=== PATIENT | male | born 1960 | race Caucasian/White ===

== ENCOUNTER → 2017-10-11 11:33 | Outpatient (CLI) | payer MEDICAID, SELFPAY ==
[2017-10-11 12:18] LABS: Amphetamine Urine VISTA NEGATIVE (<1000 ng/mL); Barbiturate Urine VISTA NEGATIVE (< 200 ng/mL); Benzodiazepine Urine VISTA NEGATIVE (< 200 ng/mL); Cocaine Urine VISTA NEGATIVE (< 300 ng/mL); Ecstacy Urine VISTA NEGATIVE (< 500 ng/mL); Methadone Urine VISTA NEGATIVE (< 300 ng/mL); PCP Urine VISTA NEGATIVE (< 25 ng/mL); THC Urine VISTA NEGATIVE (< 50 ng/mL); Vista UDS pH Range 7
== END ==
PROVIDERS: Family Provider Family Medicine; PCP Family Medicine; Visit Provider Anesthesiology Pain Medicine
DX: F11.20 Opioid dependence, uncomplicated (principal)
CPT/HCPCS: 80307

== ENCOUNTER → 2018-07-18 13:00 | Outpatient (CLI) | payer MEDICAID, SELFPAY ==
[2018-07-18 15:04] LABS: Amphetamine Urine VISTA NEGATIVE (<1000 ng/mL); Barbiturate Urine VISTA NEGATIVE (< 200 ng/mL); Benzodiazepine Urine VISTA NEGATIVE (< 200 ng/mL); Cocaine Urine VISTA NEGATIVE (< 300 ng/mL); Ecstacy Urine VISTA NEGATIVE (< 500 ng/mL); Methadone Urine VISTA NEGATIVE (< 300 ng/mL); PCP Urine VISTA NEGATIVE (< 25 ng/mL); THC Urine VISTA NEGATIVE (< 50 ng/mL); Vista UDS pH Range 6
== END ==
PROVIDERS: Family Provider Family Medicine; PCP Family Medicine; Referring Provider Anesthesiology Pain Medicine; Visit Provider Anesthesiology Pain Medicine
DX: F11.20 Opioid dependence, uncomplicated (principal)
CPT/HCPCS: 80307

== ENCOUNTER → 2019-01-09 | Outpatient (CLI) | payer MEDICAID, SELFPAY ==
[2018-11-12 11:10] VITALS: BMI 27.8
[2019-01-09 17:42] LABS: Amphetamine Urine VISTA NEGATIVE (<1000 ng/mL); Barbiturate Urine VISTA NEGATIVE (< 200 ng/mL); Benzodiazepine Urine VISTA NEGATIVE (< 200 ng/mL); Cocaine Urine VISTA NEGATIVE (< 300 ng/mL); Ecstacy Urine VISTA NEGATIVE (< 500 ng/mL); Methadone Urine VISTA NEGATIVE (< 300 ng/mL); PCP Urine VISTA NEGATIVE (< 25 ng/mL); THC Urine VISTA NEGATIVE (< 50 ng/mL); Vista UDS pH Range 6
== END | disposition home or self-care (01) ==
PROVIDERS: Family Provider Family Medicine; PCP Family Medicine; Referring Provider Anesthesiology Pain Medicine; Visit Provider Anesthesiology Pain Medicine
DX: F11.20 Opioid dependence, uncomplicated (principal)
CPT/HCPCS: 80307

== ENCOUNTER → 2019-10-07 13:57 | Outpatient (CLI) | payer MEDICAID, SELFPAY ==
[2019-05-20 11:15] VITALS: BMI 28.0
[2019-10-07 17:03] LABS: Amphetamine Urine VISTA NEGATIVE (<1000 ng/mL); Barbiturate Urine VISTA NEGATIVE (< 200 ng/mL); Benzodiazepine Urine VISTA NEGATIVE (< 200 ng/mL); Cocaine Urine VISTA NEGATIVE (< 300 ng/mL); Ecstacy Urine VISTA NEGATIVE (< 500 ng/mL); Methadone Urine VISTA NEGATIVE (< 300 ng/mL); PCP Urine VISTA NEGATIVE (< 25 ng/mL); THC Urine VISTA NEGATIVE (< 50 ng/mL); Vista UDS pH Range 5
== END ==
PROVIDERS: PCP Family Medicine; Referring Provider Anesthesiology Pain Medicine; Visit Provider Anesthesiology Pain Medicine
DX: F11.20 Opioid dependence, uncomplicated (principal)
CPT/HCPCS: 80307

== ENCOUNTER → 2020-03-23 10:55 | Outpatient (CLI) | payer MEDICAID, SELFPAY ==
[2019-05-20 11:15] VITALS: BMI 28.0
[2020-03-23 11:51] LABS: Amphetamine Urine VISTA NEGATIVE (<1000 ng/mL); Barbiturate Urine VISTA NEGATIVE (< 200 ng/mL); Benzodiazepine Urine VISTA NEGATIVE (< 200 ng/mL); Cocaine Urine VISTA NEGATIVE (< 300 ng/mL); Ecstacy Urine VISTA NEGATIVE (< 500 ng/mL); Methadone Urine VISTA NEGATIVE (< 300 ng/mL); PCP Urine VISTA NEGATIVE (< 25 ng/mL); THC Urine VISTA NEGATIVE (< 50 ng/mL); Vista UDS pH Range 5
== END ==
PROVIDERS: PCP Family Medicine; Referring Provider Anesthesiology Pain Medicine; Visit Provider Anesthesiology Pain Medicine
DX: F11.20 Opioid dependence, uncomplicated (principal)
CPT/HCPCS: 80307

== ENCOUNTER → 2020-11-11 14:42 | Outpatient (CLI) | payer MEDICAID, SELFPAY ==
[2020-06-10 10:44] VITALS: BMI 29.1
[2020-11-11 16:17] LABS: Amphetamine Urine VISTA NEGATIVE (<1000 ng/mL); Barbiturate Urine VISTA NEGATIVE (< 200 ng/mL); Benzodiazepine Urine VISTA NEGATIVE (< 200 ng/mL); Cocaine Urine VISTA NEGATIVE (< 300 ng/mL); Ecstacy Urine VISTA NEGATIVE (< 500 ng/mL); Methadone Urine VISTA NEGATIVE (< 300 ng/mL); PCP Urine VISTA NEGATIVE (< 25 ng/mL); THC Urine VISTA NEGATIVE (< 50 ng/mL); Vista UDS pH Range 6
== END ==
PROVIDERS: PCP Family Medicine; Referring Provider Anesthesiology Pain Medicine; Visit Provider Anesthesiology Pain Medicine
DX: F11.20 Opioid dependence, uncomplicated (principal)
CPT/HCPCS: 80307

== ENCOUNTER → 2021-05-26 14:12 | Outpatient (CLI) | payer MEDICAID, SELFPAY ==
[2021-05-26 15:02] LABS: Amphetamine Urine VISTA NEGATIVE (<1000 ng/mL); Barbiturate Urine VISTA NEGATIVE (< 200 ng/mL); Benzodiazepine Urine VISTA NEGATIVE (< 200 ng/mL); Cocaine Urine VISTA NEGATIVE (< 300 ng/mL); Ecstacy Urine VISTA NEGATIVE (< 500 ng/mL); Methadone Urine VISTA NEGATIVE (< 300 ng/mL); PCP Urine VISTA NEGATIVE (< 25 ng/mL); THC Urine VISTA NEGATIVE (< 50 ng/mL); Vista UDS pH Range 6
== END ==
PROVIDERS: PCP Family Medicine; Referring Provider Anesthesiology Pain Medicine; Visit Provider Anesthesiology Pain Medicine
DX: F11.20 Opioid dependence, uncomplicated (principal)
CPT/HCPCS: 80307

== ENCOUNTER 2021-10-13 15:37 | Outpatient (CLI) | payer MEDICAID, SELFPAY ==
[2021-10-13 16:44] LABS: Amphetamine Urine VISTA NEGATIVE (<1000 ng/mL); Barbiturate Urine VISTA NEGATIVE (< 200 ng/mL); Benzodiazepine Urine VISTA NEGATIVE (< 200 ng/mL); Cocaine Urine VISTA NEGATIVE (< 300 ng/mL); Ecstacy Urine VISTA NEGATIVE (< 500 ng/mL); Methadone Urine VISTA NEGATIVE (< 300 ng/mL); PCP Urine VISTA NEGATIVE (< 25 ng/mL); THC Urine VISTA NEGATIVE (< 50 ng/mL); Vista UDS pH Range 6
== END 2021-10-13 23:59 | disposition home or self-care (01) ==
LOC: LAB 15:38
PROVIDERS: PCP Family Medicine; Visit Provider Anesthesiology Pain Medicine
DX: F11.20 Opioid dependence, uncomplicated (principal)
CPT/HCPCS: 80307

== ENCOUNTER → 2022-06-22 | Outpatient (CLI) | payer MEDICAID, SELFPAY ==
[2022-06-22 13:52] LABS: Amphetamine Urine VISTA NEGATIVE (<1000 ng/mL); Barbiturate Urine VISTA NEGATIVE (< 200 ng/mL); Benzodiazepine Urine VISTA NEGATIVE (< 200 ng/mL); Cocaine Urine VISTA NEGATIVE (< 300 ng/mL); Ecstacy Urine VISTA NEGATIVE (< 500 ng/mL); Methadone Urine VISTA NEGATIVE (< 300 ng/mL); PCP Urine VISTA NEGATIVE (< 25 ng/mL); THC Urine VISTA NEGATIVE (< 50 ng/mL); Vista UDS pH Range 6
== END | disposition home or self-care (01) ==
LOC: LAB 13:08
PROVIDERS: PCP Family Medicine; Referring Provider Anesthesiology Pain Medicine; Visit Provider Anesthesiology Pain Medicine
DX: F11.20 Opioid dependence, uncomplicated (principal)
CPT/HCPCS: 80307

== ENCOUNTER → 2023-01-11 | Outpatient (CLI) | payer MEDICAID, SELFPAY ==
[2023-01-11 14:40] LABS: Amphetamine Urine VISTA NEGATIVE (<1000 ng/mL); Barbiturate Urine VISTA NEGATIVE (< 200 ng/mL); Benzodiazepine Urine VISTA NEGATIVE (< 200 ng/mL); Cocaine Urine VISTA NEGATIVE (< 300 ng/mL); Ecstacy Urine VISTA NEGATIVE (< 500 ng/mL); Methadone Urine VISTA NEGATIVE (< 300 ng/mL); PCP Urine VISTA NEGATIVE (< 25 ng/mL); THC Urine VISTA NEGATIVE (< 50 ng/mL); Vista UDS pH Range 6
== END | disposition home or self-care (01) ==
LOC: LAB 13:44
PROVIDERS: PCP Family Medicine; Referring Provider Anesthesiology Pain Medicine; Visit Provider Anesthesiology Pain Medicine
DX: F11.20 Opioid dependence, uncomplicated (principal)
CPT/HCPCS: 80307

== ENCOUNTER 2023-08-03 13:43 | Outpatient (RCR) | payer MEDICAID, SELFPAY | END 2023-08-03 23:59 | LOC: NS 13:43 | PROVIDERS: PCP Internal Medicine; Visit Provider Internal Medicine Hematology & Oncology | DX: Z71.3 Dietary counseling and surveillance (principal); C09.9 Malignant neoplasm of tonsil, unspecified; C96.9 Malignant neoplasm of lymphoid, hematopoietic and related tissue, unspecified ==

== ENCOUNTER 2023-08-15 08:47 | Day surgery (SDC) | payer MEDICAID, SELFPAY ==
[2023-08-15] MEDS: Lactated Ringers 1,000 ML 15 ML IV (09:40)
--- NOTE | 2023-08-15 09:41 | PCM.HP.BLA ---
History and Physical Date of Admission: 08/15/23 Intake Vital Signs 07/24/2309:50 07/26/2309:41 Height 5 ft 9 in 5 ft 9 in Weight: 179 lb BMI 26.4 BP 133/76 H Blood Pressure Location Rt brachial Position Sitting Respiration 16 Intake Visit Reasons: PORT/PEG TUBE PLACEMENT Chief Complaint: Left neck mass, tonsil cancer Allergies bee venom protein (honey bee) Allergy (Verified 07/24/23 09:44) anaphylaxis COUNTS INCLUDE 234 BEDS AT THE [facility] Medical History (Updated 07/26/23 @ 09:[address] Pedrito Mathew MD) Anterolisthesis Atherosclerotic heart disease of [place] coronary artery without angina pectoris CVA (cerebral vascular accident) Essential hypertension Femoral bruit HLD (hyperlipidemia) HLD (hyperlipidemia) Hypertension Nonsustained ventricular tachycardia NSTEMI (non-ST elevated myocardial infarction) Old myocardial infarction Presence of stent in coronary artery (~07/14/16) Regional lymph node metastasis present Surgical History (Updated 07/26/23 @ 09:41 by Terri Pascual) History of bilateral knee replacement Presence of coronary angioplasty implant and graft S/P PTCA (percutaneous transluminal coronary angioplasty) S/P tooth extraction Family History Father CAD (coronary artery disease)Mother Hypertension Social History Smoking Status: Current every day smoker tobacco type: cigarettes second hand exposure: Yes quit status: considering quitting alcohol intake: current alcohol intake frequency: holidays/special occasions only Alcohol type: beer Previous attempts at quittin substance use type: does not use caffeine: Yes Type: carbonated beverages, coffee and tea what type of physical activity do you participate in: none seatbelt use: always do you feel safe at home: Yes HPI HPI HPI: Patient is a 63-year-old male here with tonsillar cancer for port placement and PEG placement. Patient recently had teeth pulled and is requested that we wait 2 weeks to perform the procedure. ROS General General: Yes weight change and fatigue; No appetite, colon cancer, breast cancer or weakness HEENT HEENT: Yes swollen glands; No difficulty swallowing, eye injury, eye surgery or hoarseness Endo Endocrine: No thyroid disease, diabetes mellitus, thyroid cancer, Hair loss, heat intolerance or cold intolerance Skin Skin: No rash or changing moles Breast Breast: No left breast lump, right breast lump, nipple discharge, breast pain, abnormal mammogram, abnormal US or breast enlargement Musc Musculoskeletal: Yes back problems; No arthritis, rheumatoid arthritis, gout or joint pain Cardio Cardiovascular: Yes heart disease, high blood pressure, heart attack and heart stent; No murmur, pacemaker, atrial fibrillation, palpitations, shortness of breat with exertion or chest pain Psych Psychiatric: No depression, anxiety or hearing voices Resp Respiratory: No shortness of breath, No sleep apnea, No cough, No COPD, No asthma, No emphysema and No wheezing Gastro Gastrointestinal: No abdominal pain, No nausea or vomiting, No diarrhea, No constipation, No blood in stool, No acid reflux, No hemorrhoids, No ulcers, No gallbladder problem and No black,tarry stools Rene Hematologic: Yes blood thinners, No blood disorders, No bleeding, No anemia and No blood clots Neuro Neurologic: No system reviewed and no additional complaints, except as documented, No as per HPI, No abnormal gait, No abnormal hearing, No abnormal movements, No abnormal speech, No behavioral changes, No burning sensations, No confusion, No convulsions, No disequilibrium, No dizziness, No localized weakness, No frequent falls, No headache(s), No lack of coordination, No loss of vision, No memory loss, Yes numbness, No other visual disturbances, No radicular pain, No restless legs, No sensory deficit, No syncope, Yes tingling, No tremor(s), No weakness and No other Exam Const General: cooperative Orientation: alert and oriented x3 HENMT Head: normal to inspection Neck Neck: normal visual inspection and full ROM Chest Chest palpation & inspection: normal inspection of the chest Resp Effort & Inspection: normal respiratory effort Auscultation: clear to auscultation bilaterally Cardio Rate: regular rate Rhythm: regular rhythm GI Inspection: non-distended Palpation: soft and nontender Skin General: no rashes or lesions noted Neuro General: patient alert and patient oriented x3 Extrem General: full ROM Psych Appearance: grossly normal Mental Status: mental status grossly normal Assessment and Plan Assessment and Plan (1) Regional lymph node metastasis present: Status: Acute (2) Squamous cell carcinoma of left tonsil: Status: Acute (3) Encounter for insertion of venous access port: Status: Acute Plan I discussed port and PEG tube placement. I discussed chest port placement in detail including the risks of bleeding and infection and injury to other organs or pneumothorax. I also discussed PEG tube placement with EGD. I discussed the risks of displacement as well as colonic injury or injury to any organs in between the stomach and the abdominal wall. I discussed the risks of this as well and the risk of endoscopy. Patient understands all the risks and is willing to proceed. The patient will stop his Plavix for 5 days but he may continue his aspirin. Pedrito Mathew MD Pager: [facility] [address] [place] [address], [address] [place] [address] Office: I have examined the patient and the H&P has been reviewed. There are no clinical changes since date of exam.
[2023-08-15 09:42] VITALS: BP 117/67; PULSE 51; RESP 18; TEMP 36.6; O2SAT 100; BMI 25.8
[2023-08-15] MEDS: Cefotetan 2 GM in 0.9% NS 100 ML IV (10:22)
[2023-08-15] MEDS: Lidocaine 1%/Epi 1:200 (30ml) 30 ML AMPUL (10:38)
[2023-08-15] MEDS: Bupivacaine Mpf 0.5% 30 ML VIAL (10:39)
--- NOTE | 2023-08-15 11:12 | OP.PCM_ITS ---
Report of Operation Date of Procedure: 08/15/23 Pre-Operative Diagnosis: Tonsillar cancer and need for PEG tube and port for ch emotherapy and feeding Post-Operative Diagnosis: Same Surgery/Procedure Performed:: 1. Ultrasound and fluoroscopy guided right chest port placement utilizing right IJ 2. EGD with PEG tube placement Type of Anesthesia: Local MAC Estimated Blood Loss (mL): 10 Description of Procedure: After obtaining informed consent patient was brought back to the operating room MAC anesthesia was induced and the right chest and neck were prepped in normal sterile fashion. Ultrasound was used to evaluate both IJs and the right IJ was selected. Next, using a needle, the right IJ was accessed and a guidewire was passed on into the superior vena cava under fluoroscopy guidance. A small incision was made over the puncture site and the dilator introducer was placed over the guidewire. Next this was capped and the pocket was made for the port. 1% lidocaine with epinephrine was injected in the proposed port site. An incision was made with scalpel. Electrocautery was used to make a pocket under the skin and subcutaneous tissue. Hemostasis was obtained. Next, the catheter was tunneled up to the neck incision site and placed through the introducer. The peel-away introducer was removed and the position of the catheter was confirmed on fluoroscopy. Next, the catheter was trimmed and attached to the port with the locking device. Interrupted 2-0 Vicryl sutures were used to anchor the port to the chest wall and then the port was placed inside the pocket. The pocket was then flushed with saline and the port irrigated with saline. There was good blood return and the port flushed easily. Next, heparin was injected into the port. The skin was closed with subcutaneous interrupted 3-0 Vicryl sutures. A single 3-0 Vicryl sutures placed under the skin at the neck incision site. Steri-Strips were placed as well as op sites. Next the abdomen was prepped and draped. Well-lubricated EGD scope was placed through the mouth and down through the esophagus into the stomach. Stomach was insufflated. Using palpation and transillumination an area of the stomach was selected. Next the area overlying this was prepped and then injected with local anesthetic. A small skin incision was made with a scalpel. Under direct visualization the test needle was placed through the abdominal wall and into the stomach. The guidewire was placed through this and then the snare was used to grasp the guidewire and the scope was removed bringing the guidewire with it. The PEG tube was attached to the guidewire and then retracted back into the stomach so that the PEG tube was pulled through the incision. The scope was reinserted into the stomach and it was inspected. The bumper was in good position. It was loosely touching the stomach wall and abdominal wall. There was minimal bleeding. The stomach was suctioned and the scope was removed. The bolster was placed over the PEG tube as well as the clamp and then the connecting device. The bolster was placed at 3 cm. Dressings were applied as well as antiseptic ointment. The tube was taped to the abdominal wall. Patient tolerated procedure well, was taken to PACU in stable condition. Chest x-ray will be obtained. Grafts/Implants Used: 8 [place]amese PowerPort, 20 [place]amese safety pull PEG tube Admit VTE Documentation VTE Mechan Device Prophylaxis: SCD's
[2023-08-15 11:15] VITALS: BP 114/76; BP 117/67; PULSE 48; RESP 16; TEMP 36.8; O2SAT 98
--- NOTE | 2023-08-15 11:16 | DCINST_ITS ---
Discharge Instructions Procedure Port-A-Cath Diet Discharge Diet: Light diet - advance as tolerated (Pain medication may cause nausea. You should typically eat light foods as you take your pain medication.) Activity Discharge Activity: Return to Normal Activity and May Shower (with your bandage in place in 1-2 days after surgery. DO NOT SHOWER WHEN YOUR PORT IS ACCESSED.) Lifting Restrictions: 20 lbs for 2 days Dressing / Incision Call your doctor if your incision/area has: Continuous Slow Oozing, Sudden Increased Bleeding, Increased Pain/ Swelling, Increased Redness and Foul Smelling Discharge Call your doctor if you observe: Fever of 101 or Higher Remove Dressing in: 2 days Cleanse incision/area with: Soap & Water Additional Dressing/Incision Instructions:: change PEG dressings as needed. flush per oncologists instruction. Follow Up Care Please Follow Up With: Pedrito Mathew MD When: as needed [phone] Test Results: Test results from this visit will be discussed in further detail at your follow- up appointment, if applicable. Discharge Plan Admission Attending Provider: Pedrito Mathew Primary Care Provider: Jennifer Ortega Instructions Additional Instructions / Restrictions: Alternate ibuprofen and Tylenol for pain, resume Plavix on Discharge Orders/Prescriptions Prescriptions: No Action hydrocodone-acetaminophen 7.5-325 mg tablet 1 tab PO TID Lyrica 100 mg capsule 100 mg PO TID albuterol sulfate [Ventolin HFA] 90 mcg/actuation HFA aerosol inhaler 2 puff INHALATION Q6H PRN (Reason: shortness of breath or wheezing) meclizine 25 mg tablet 25 mg PO TID PRN (Reason: Vertigo) Qty: 270 3RF nicotine 14 mg/24 hr patch 24 hour 1 patch transdermal Q24H Qty: 28 1RF lidocaine-prilocaine 2.5-2.5 % cream 1 applic topical ONCE PRN (Reason: port access) 30 Days Qty: 30 2RF dexamethasone 4 mg tablet 8 mg PO .COMPLEX Qty: 42 0RF Rx Instructions: Take 8 mg orally on days 2, 3 and 4 after chemotherapy ondansetron 8 mg tablet,disintegrating 8 mg PO Q8H PRN (Reason: nausea and vomiting) Qty: 30 2RF aspirin 81 MG tablet,delayed release (DR/EC) 81 mg PO DAILY Patient Comments: heart health amlodipine 10 mg tablet 10 mg PO DAILY Qty: 90 3RF Patient Comments: helps control BP lisinopril 40 mg tablet 40 mg PO QDAY Qty: 90 3RF clopidogrel 75 mg tablet 75 mg PO DAILY Qty: 90 3RF Patient Comments: helps prevents clots from forming atorvastatin 40 mg tablet 40 mg PO QDAY Qty: 90 3RF metoprolol tartrate 25 mg tablet 12.5 mg PO BID Qty: 90 3RF Referrals / Follow Up: Jennifer Ortega, [Primary Care Provider] - Disposition Disposition (needs filled in before D/C Order can be placed): Home, Self Care
[2023-08-15 11:20] VITALS: BP 117/67; BP 127/69; PULSE 57; RESP 16; O2SAT 99
[2023-08-15 11:24] VITALS: BP 117/67; BP 137/73; PULSE 49; RESP 16; TEMP 36.9; O2SAT 100
--- NOTE | 2023-08-15 11:25 | RAD_ITS ---
STUDY: X-RAY CHEST REASON FOR EXAM: Male, 63 years old. Line placement -- in pacu TECHNIQUE: Single AP portable view of the chest. COMPARISON: Comparison is made with prior study June 13, 2016. FINDINGS: A right-sided Port-A-Cath is seen with the tip at the junction of the superior vena cava and right atrium. The lungs are clear and expanded. Stable granuloma in the right midlung. There is no demonstrated pleural abnormality. Normal size heart. Normal mediastinum and derrick. Normal visualized pulmonary arteries. There is atherosclerotic calcification of the aortic arch with tortuosity. There are degenerative changes of the visualized thoracic spine. Normal visualized ribs, clavicles, and shoulders. There is no demonstrated abnormality of the visualized soft tissue structures of the upper abdomen. RAD/CXR for Line Placement IMPRESSION: The tip of the right-sided sofía catheter is at the junction of the superior vena cava and right atrium. Electronically Signed: Julian Huber MD at 12:36 EST ,
[2023-08-15] MEDS: oxyCODONE 5 MG Tablet PO (12:24)
[2023-08-15] MEDS: Acetaminophen 325 MG Tablet 650 MG PO (12:24)
[2023-08-15 12:36] VITALS: BP 117/67; BP 130/72; PULSE 63; RESP 20; TEMP 36.4; O2SAT 99
[2023-08-15 13:09] VITALS: BP 117/67
== END 2023-08-15 13:14 | disposition home or self-care (01) ==
LOC: EN 08:48 → AC 08:50
PROVIDERS: PCP Internal Medicine; Referring Provider Internal Medicine; Visit Provider Surgery
PROC: 0DJ08ZZ Inspection of Upper Intestinal Tract, Via Natural or Artificial Opening Endoscopic (ICD-10-PCS; CPT 43235; principal; 2023-08-15 10:15)
DX: Z45.2 Encounter for adjustment and management of vascular access device (principal); C77.9 Secondary and unspecified malignant neoplasm of lymph node, unspecified; C09.9 Malignant neoplasm of tonsil, unspecified; Z46.59 Encounter for fitting and adjustment of other gastrointestinal appliance and device; I10 Essential (primary) hypertension; E78.00 Pure hypercholesterolemia, unspecified; I25.10 Atherosclerotic heart disease of native coronary artery without angina pectoris; F17.210 Nicotine dependence, cigarettes, uncomplicated; Z79.01 Long term (current) use of anticoagulants; Z79.02 Long term (current) use of antithrombotics/antiplatelets; Z79.82 Long term (current) use of aspirin; Z79.899 Other long term (current) drug therapy
CPT/HCPCS: 36561; 43246; 00532; 71045; 77001; J7120; C1788; J2405

== ENCOUNTER → 2023-08-24 | Outpatient (CLI) | payer MEDICAID, SELFPAY ==
--- NOTE | 2023-08-24 14:33 | ST.MBS ---
Modified Barium Swallow Patient Information Study Date: 08/24/23 Study Time: 13:00 Direct Billable Minutes: 83 Total Minutes procedure & reportin Diagnosis: Squamous cell carcinoma of left tonsil C09.9 Referring Physician: Keven Gastelum Reason for Referral: Objectively assess swallow function, assess risk for aspiration, and determine recommendations for least restrictive diet textures and compensatory strategies to improve safety of swallow. Medical History: He is a 63 year old male diagnosed with clinical stage I (cT2 cN1 M0) p16 positive SCC of the left tonsil status post evaluation and biopsy of the primary disease (06/21/2023), CT neck/chest with contrast (06/29/2023), and evaluation by ENT (07/17/2023). Started chemo and radiation 08/21/23. His cancer has spread to his L soft palate and the back of his tongue per significant other, Lawanda. He began chemoradiation 08/21/2023 and has PEG tube in place, which was adjusted 08/21/2023 due to pain/discomfort. PEG tube has been placed. He eats regular textures / thin liquids without difficulty despite inability to wear his dentures (irritating). After BSE with [facility] 08/22/2023, he was recommended for soft and bite size textures / thin liquids with plans for MBSS to further assess risk for aspiration. Patient experienced a CVA (May 2016) with residual L sided numbness (~3/4 numb per patient) and weakness. Hx of ST, OT, PT - but patient unable to give details. Denies swallowing difficulty besides drooling after the stroke. Current Diet Ordered: Soft and bite size textures / Thin liquids Dentition: Edentulous Mental Status: WNL (Able to follow commands for the evaluation.) Respiratory Status: Oxygenating on Room Air Penetration-Aspiration Scale Penetration-Aspiration Scale: OBJECTIVE ASSESSMENT OF SWALLOW FUNCTION (QUANTITATIVE ? PER TRIAL): PENETRATION / ASPIRATION SCALE ([place]): 1 = does not enter airway 2 = enters airway/above vocal folds/ejected 3 = enters airway/above vocal folds/not ejected 4 = enters airway/contacts vocal folds/ejected 5 = enters airway/contacts vocal folds/not ejected 6 = enters airway/below vocal folds/ejected 7 = enters airway/below vocal folds/not ejected despite effort 8 = enters airway/below vocal folds/no effort VIDEOFLOROSCOPIC SCALE SCORE (HANCOCK): Grade I = aspiration of material that has penetrated into the laryngeal vestibule, intact cough reflex Grade II = aspiration < 10 % of the bolus, intact cough reflex Grade III = aspiration of < 10 % of the bolus, reduced cough reflex or aspiration of > 10 % of the bolus, intact cough reflex Grade IV = aspiration of > 10 % of the bolus, reduced cough reflex Penetration-Aspiration Scale Score Thin Liquid via teaspoon: Result: 2= enter airway/above vocal folds/ejected Thin Liquid via teaspoon Trial 2: Result: 1= does not enter airway Thin Liquid via large single sip: cup: Result: 2= enter airway/above vocal folds/ejected [place] Thick Liquid via large single sip: cup: Result: 1= does not enter airway Pudding via teaspoon: Result: 1= does not enter airway Comment: Esophageal screen - Complete clearance. / Cookie: Result: 1= does not enter airway Thin Liquid via sequential sips:straw: Result: 1= does not enter airway Oral Phase Labial Seal: Interlabial escape, no progression to anterior lip Tongue Control During Bolus Hold: Posterior escape of greater than half of bolus Bolus Preparation/Mastication: Slow prolonged chewing/mashing with complete recollection Bolus Transport/Lingual Motion: Delayed initiation of tongue motion Oral Residue: Residue collection on oral structures (sequential sips of thin) Pharyngeal Phase Initiation of Pharyngeal Swallow: Bolus head in pyriforms Soft Palate Elevation: Trace column of contrast/air between soft palate and pharyngeal wall Laryngeal Elevation: Comp. Superior move thyroid cart w/comp. apprx arytenoid cart-epig pet Anterior Hyoid Excursion: Partial anterior movement Epiglottic Movement: Complete inversion Laryngeal Vestibule Closure at Height of Swallow: Incomplete; narrow column of air/contrast in laryngeal vestibule Pharyngeal Stripping Wave: Present - diminished Pharyngoesophageal Segment Opening: Complete distension and complete duration; no obstruction of flow Tongue Base Retraction: Narrow column of contrast between tongue base & post. pharyngeal wall Pharyngeal Residue: Collection of residue within or on pharyngeal structures Esophageal Phase Esophageal Clearance: Complete clearance Diagnosis/Impression Diagnosis: Mild oropharyngeal phase dysphagia R13.12 Impression: The oral phase is primarily marked by... -Decreased bolus control with >1/2 of the bolus spilling posteriorly to the pyriforms prior to swallow onset observed with sequential sips of thin liquids. -Mildly delayed tongue motion for A-P transport. -Prolonged, but complete mastication of cookie. The pharyngeal phase is primarily marked by... -Mildly decreased anterior hyoid excursion; however, complete laryngeal elevation. Trace laryngeal penetration of full liquids via cup and tsp with full ejection. -Mildly-moderately decreased tongue base retraction and pharyngeal stripping wave with resulting mild-moderate pharyngeal residues. -Mildly delayed swallow onset. Recommendations Diet: Mechanical Soft Textures (Soft and bite size textures - IDDSI Level 6) and Thin Liquids Compensatory Strategies: Small Bites, Small Sips, Slow Rate, Alternate bites/solids and sips/liquids and Sitting upright Recommend Repeat Modified Barium Swallow: Yes (Repeat MBSS 3 months after completion of radiation to monitor swallow function as the patient is at risk for worsening dysphagia and aspiration risk s/p radiation treatment.) Need for Skilled Speech Therapy Services: Yes Comment: 1X every other week for dysphagia therapy. Train in use of aspiration precautions and oropharyngeal exercise program (Samantha Scales, CTAR, Effortful Swallow). Monitor jaw opening as patient is at risk for trismus during chemoradiation treatment. Status Active ST Patient: Active Contact Information [facility] Speech Therapy:: Jennifer Pederson M.A. [facility] Speech-Language Pathologist [facility] [address] [place] [address] [email or web address] [phone]
== END | disposition home or self-care (01) ==
LOC: RAD 12:25
PROVIDERS: PCP Internal Medicine; Referring Provider Student in an Organized Health Care Education/Training Program; Visit Provider Student in an Organized Health Care Education/Training Program
DX: C09.9 Malignant neoplasm of tonsil, unspecified (principal)
CPT/HCPCS: 74230; 92611

== ENCOUNTER 2023-11-01 13:00 | Outpatient (RCR) | payer MEDICAID, SELFPAY | END 2023-11-02 23:59 | LOC: NS 13:00 | PROVIDERS: PCP Internal Medicine; Visit Provider Internal Medicine Hematology & Oncology | DX: Z71.3 Dietary counseling and surveillance (principal); C76.0 Malignant neoplasm of head, face and neck | CPT/HCPCS: 97803 ==

== ENCOUNTER 2023-11-21 13:35 | Outpatient (RCR) | payer MEDICAID, SELFPAY | END 2023-12-03 23:59 | LOC: NS 13:35 | PROVIDERS: PCP Internal Medicine; Visit Provider Internal Medicine Hematology & Oncology | DX: C09.9 Malignant neoplasm of tonsil, unspecified (principal); C77.9 Secondary and unspecified malignant neoplasm of lymph node, unspecified | CPT/HCPCS: 92526; 97803 ==

== ENCOUNTER 2024-02-12 14:14 | Outpatient (RCR) | payer MEDICAID, SELFPAY | END 2024-03-03 23:59 | LOC: NS 14:14 | PROVIDERS: PCP Internal Medicine; Visit Provider Internal Medicine Hematology & Oncology | DX: C09.9 Malignant neoplasm of tonsil, unspecified (principal); C77.9 Secondary and unspecified malignant neoplasm of lymph node, unspecified ==

== ENCOUNTER 2024-05-29 11:36 | Emergency (ER) | payer MEDICAID, SELFPAY ==
[2024-05-29] VITALS (11 sets, daily range): BP systolic 111–132; BP diastolic 49–80; PULSE 51–73; RESP 14–21; TEMP 36.3–36.8; O2SAT 96–99; BMI 20.9
--- NOTE | 2024-05-29 11:52 | EKG12_ITS ---
Test Reason : Blood Pressure : / mmHG Vent. Rate : 065 BPM Atrial Rate : 065 BPM P-R Int : 162 ms QRS Dur : 084 ms QT Int : 404 ms P-R-T Axes : 028 067 050 degrees QTc Int : 420 ms Sinus rhythm with marked sinus arrhythmia Otherwise normal ECG Confirmed by Shankar Hopkins ([id number]), medical transcription editor BRUNO DAVIES ([id number]) on 05/31/2024 9:41:12 AM Referred By: Confirmed By:Shankar Hopkins
[2024-05-29] MEDS: 0.9% Normal Saline (1000mL) 1,000 ML 999 ML IV (12:27)
--- NOTE | 2024-05-29 12:28 | CT_ITS ---
STUDY: CT FACIAL BONES WITH CONTRAST REASON FOR EXAM: Male, 63 years old. left face swelling INDICATIONS: A 63-YEAR-OLD MALE WITH HISTORY OF HEAD AND NECK CARCINOMA PRESENTING FOR RESTAGING EXAMINATION. Technologist Notes left facial pain/swelling and redness x 1 weeks, hx lymphedema, hx head/neck cancer, CVA RADIATION DOSAGE (If Supplied By Facility): CTDIvol = ( 29.38 ) mGy, DLP = ( 642.95 ) mGycm TECHNIQUE: The patient was scanned in a multi detector CT scanner. Transaxial imaging was performed following the intravenous administration of IV 100mL Isovue-300. Sagittal and coronal images were reconstructed. Individualized dose optimization techniques were used for this CT. COMPARISON: PET/CT exam dated April 23, 2024 which did not show viable residual neoplasm. FINDINGS: Chronic dental caries and lucency related changes seen in the left side of the mandibular dental plate. However additional intramedullary resorption and cortical erosion has occurred along the posterior lower aspect of the mandible see image 35/81 series 3 most likely due to osteomyelitis, however given the history of malignancy this is also of concern. * Left mid to lower facial swelling is significant on the current study, and was mild to moderate on the prior exam of April 23, 2024. Interval development of a lobular fluid collection along the anterior and left side body of the mandible beneath the lip of the soft tissues measuring 3.95 x 0.92 cm, which could represent an abscess, and nonspecified serous fluid collection, or nonspecified inflammatory fluid collection given the complex history of the patient. Typically fluid collections in this region are dental related and related to infections * Reactive subcentimeter level 2 lymphadenopathy is present, however no submental adenopathy is visualized * No subcutaneous or intramuscular abscess is seen * No visualized active soft tissue hemorrhage * Acute left parotitis visible with coarsening, hyperenhancement, and enlargement of the parotid gland compared to the right side and the prior study. No visualized abscess.. * Dedicated evaluation by ENT/oncology is recommended in the nonacute setting the remaining visualized neck structures are unremarkable on the current study. * Unremarkable submandibular glands Normal orbital liang and orbital contents. Normal nasal bones and anterior nasal spine. Normal remaining facial bones. There is no demonstrated fracture. Normal visualized paranasal sinuses. CT/Sinus/Facial Bone WITH Contras IMPRESSION: 1. Interval appearance of new intramedullary resorption and cortical erosion has occurred along the posterior lower aspect and left side of the mandible see image 35/81 series 3 most likely due to osteomyelitis, however given the history of malignancy this is also of concern. 2. The lobular fluid collection is anterior to this site but could still serve as the source for an abscess or serous fluid collection. Dental infection with abscess is a possibility, as well as malignancy and a desmoplastic/reactive fluid collection. The patient has a complex history and therefore will need to be directly evaluated by ENT/oral surgery. 3. 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 Electronically Signed: Peña Lemus MD at 14:26 EDT ,
--- NOTE | 2024-05-29 12:33 | EX.ED.DYSGE1 ---
HPI History of Present Illness Chief Complaint: Abscess Narrative Narrative: Patient is a 63-year-old male with past medical history of GERD, hypercholesteremia, hyperlipidemia, hypertension, CVA with left-sided residual deficits, head neck cancer status postchemotherapy about 6 months ago. He is following up with Dr. Johns in the outpatient setting today and he called in to notify us that he is sending the patient in for further evaluation management of his facial swelling and concern for an abscess. Patient states that for the past week he has had increasing facial pain and swelling on the left side and notes that yesterday when he pulled a hair 2 out of his jawline about 3 teaspoons of pus came out. He states that he has not been on any antibiotics recently. [facility] Medical History Acute prerenal azotemia Acute maculopapular rash Mucositis (ulcerative) due to antineoplastic therapy Constipation Acid reflux Encounter for chemotherapy management Pain around PEG tube site Wears glasses Wears dentures No natural teeth Cancer Arthritis Ambulates with cane High cholesterol Chronic cough History of edema Cardiology follow-up encounter Hypertension Encounter for education Regional lymph node metastasis present HLD (hyperlipidemia) Presence of stent in coronary artery (~07/14/16) Essential hypertension Atherosclerotic heart disease of [place] coronary artery without angina pectoris Old myocardial infarction Nonsustained ventricular tachycardia Femoral bruit Anterolisthesis HLD (hyperlipidemia) NSTEMI (non-ST elevated myocardial infarction) CVA (cerebral vascular accident) Hypertension Home Medications ?Medication ?Instructions ?Recorded ?Last Taken ?Type aspirin 81 mg tablet,delayed 81 mg PO DAILY 06/13/16 08/09/23 History release albuterol sulfate 90 mcg/actuation 2 puff inhalation Q6H PRN 11/12/18 Unknown History aerosol inhaler (Ventolin HFA) shortness of breath or wheezing pregabalin 100 mg capsule (Lyrica) 100 mg PO TID 11/12/18 Unknown History meclizine 25 mg tablet 25 mg PO TID PRN Vertigo #270 tabs 05/20/19 Unknown Rx amlodipine 10 mg tablet 10 mg PO DAILY #90 tabs 02/23/23 Unknown Rx atorvastatin 40 mg tablet 40 mg PO QDAY #90 tabs 02/23/23 Unknown Rx lisinopril 40 mg tablet 40 mg PO QDAY #90 tabs 02/23/23 08/14/23 18:00 Rx metoprolol tartrate 25 mg tablet 12.5 mg (1/2 x 25 mg) PO BID #90 02/23/23 08/14/23 18:39 Rx tabs nicotine 14 mg/24 hr daily 1 patch transdermal Q24H #28 ea 06/30/23 Unknown Rx transdermal patch lidocaine-prilocaine 2.5 %-2.5 % 1 applic topical ONCE PRN port 08/02/23 Unknown Rx topical cream access 30 days #30 grams ondansetron 8 mg disintegrating 8 mg PO Q8H PRN nausea and 08/02/23 Unknown Rx tablet vomiting #30 tabs lansoprazole 30 mg delayed 30 mg PO DAILY #30 tabs 08/29/23 Unknown Rx release,disintegrating tablet (Prevacid SoluTab) sennosides 8.6 mg-docusate sodium 1 tab-cap PO QHS #30 caps 08/29/23 Unknown Rx 50 mg capsule (Senna Plus) MAGIC MOUTH WASH (BMX) 180 mL 15 ml PO .Q6HR #180 mL 09/05/23 Unknown Rx suspension nystatin 100,000 unit/mL oral 5 ml PO .qid #500 mL 09/13/23 Unknown Rx suspension buprenorphine 10 mcg/hour weekly 1 patch topical QWEEK 10/02/23 Unknown History transdermal patch (Butrans) buprenorphine 20 mcg/hour weekly 1 patch transdermal QWEEK 10/16/23 Unknown History transdermal patch hydrocodone 7.5 mg-acetaminophen 1 tab PO Q8H PRN 11/21/23 Unknown History 325 mg tablet pentoxifylline 400 mg 400 mg PO TID #90 tabs 04/26/24 Unknown Rx tablet,extended release vitamin E mixed 1,000 unit capsule 1 unit (0.001 x 1,000 unit) PO 04/26/24 Unknown Rx DAILY #30 caps Allergy/AdvReac Type Severity Reaction Status Date / Time Environmental Allergies: Allergy Unknown Other Verified 05/29/24 11:49 Uncoded bee venom protein (honey bee) Allergy anaphylaxis Verified 05/29/24 11:49 Family History Father CAD (coronary artery disease) Mother Hypertension Surgical History History of coronary artery stent placement History of cardiac catheterization S/P tooth extraction Presence of coronary angioplasty implant and graft S/P PTCA (percutaneous transluminal coronary angioplasty) Social History Smoking Status: Former smoker second hand exposure: Yes quit status: considering quitting alcohol intake: current alcohol intake frequency: holidays/special occasions only Alcohol type: beer Previous attempts at quittin substance use type: does not use caffeine: Yes Type: carbonated beverages, coffee and tea what type of physical activity do you participate in: none seatbelt use: always do you feel safe at home: Yes ROS ROS ED ROS Narrative Constitutional: Denies any fevers, chills, headaches complains of facial swelling and pus as noted above Eyes: Denies change in vision double vision blurry vision Cardiovascular: Denies chest pain Respiratory: Denies coughing shortness of breath Abdomen: Denies nausea vomit diarrhea : Denies any urinary symptoms Neurological: Denies numbness, tingling Musculoskeletal: Denies back pain Skin: Complains of swelling of the left side of face noted above EXAM Physical Exam Narrative Exam Narrative: General: Patient lying in bed rest comfortably did not appear to be in acute distress Head: Atraumatic, normocephalic Eyes, ears, nose, throat: PERRL bilaterally, EOMI bilateral, no conjunctival injection noted, posterior pharynx visualized no erythema noted with chronic surgical changes noted no sublingual swelling noted Neck: Soft, supple, trachea midline, no concern for Chau's angina, patient has left-sided facial swelling and pain at the along the left lower jawline Cardiovascular: Regular rate and rhythm no murmurs gallops rubs noted Respiratory: Clear to auscultation bilaterally no rales rhonchi wheezes noted Abdomen: Soft, nondistended, nontender to palpation Extremities: Patient has weakness in the left lower extremity from his previous stroke, no pedal edema on exam Neurological: Patient following commands knew that he was at [facility] year is 2023 Skin: Warm, dry, tact Const Vital Signs: 05/29/24 11:36 05/29/24 11:39 05/29/24 11:52 Temperature 98 F 98.1 F Temperature Source Temporal Oral Pulse Rate 68 73 Respiratory Rate 16 21 H Blood Pressure 118/71 125/68 H Blood Pressure Mean 86 87 Pulse Ox 96 97 96 Oxygen Delivery Method Room Air Room Air Room Air 05/29/24 12:39 05/29/24 13:00 05/29/24 14:00 Temperature 97.7 F L 97.6 F L 97.4 F L Temperature Source Temporal Temporal Temporal Pulse Rate 56 L 54 L 51 L Respiratory Rate 15 15 16 Blood Pressure 132/71 H 118/65 111/70 Blood Pressure Mean 91 82 83 Pulse Ox 96 98 96 Oxygen Delivery Method Room Air Room Air Room Air 05/29/24 15:00 05/29/24 15:00 Temperature 98.1 F Temperature Source Oral Pulse Rate 64 68 Respiratory Rate 19 H 17 Blood Pressure 119/69 119/69 Blood Pressure Mean 85 85 Pulse Ox 97 99 Oxygen Delivery Method Room Air Room Air MDM MDM MDM Narrative Medical decision making narrative: Patient is a 63-year-old male who presented to the emergency department with a chief complaint of concern for abscess/facial cellulitis. Once again the patient was following up with a physician in the outpatient setting Dr. Johns who sent him here for further evaluation management. According Dr. Johns he contacted ears nose and throat at [facility] and depending on what the imaging shows they state to give them a call and potentially transfer him there for further evaluation management. On the differential diagnose includes but limited to facial cellulitis, abscess. Once workup is obtained reviewed he will be reevaluated. Patient CBC reviewed showed no evidence leukocytosis white blood count normal at 5.9, hemoglobin is stable at 12.2, platelet count normal at 177. Patient's INR normal at 1.1, sodium normal 137, potassium normal at 4, creatinine normal at 0.50. Patient's AST and ALT were 12 and 30 respectively with a alk phosphatase of 127, urinalysis did not reveal any evidence of infection. Patient's chest x-ray was reviewed and showed COPD. Patient CT maxillofacial with contrast was reviewed and did show concerns for osteomyelitis along the left lower mandible versus recurrence of malignancy. Patient was given IV vancomycin and Zosyn as he states that he had pus coming out of this earlier today/yesterday. Patient also had a lobular fluid collection in the anterior to the site which could still serve as a source of abscess or serous fluid collection dental infection with abscess is also a possibility as well as malignancy again. At this point time do believe the patient will require transfer to [facility] notes where his ears nose and throat physician is and Dr. Johns discussed the case with him earlier today. Discussed with the transfer line and spoke with Dr. Khalil who states that he thinks the patient should go emergency department to emergency department and then be reevaluated. I called and discussed the case with the ER physician as well who states they will see the patient when he arrives. Patient was notified with all question concerns answered at bedside. Lab Data Labs: Laboratory Results - last 24 hr 05/29/24 05/29/24 12:28 12:56 WBC 5.9 RBC 4.19 L Hgb 12.2 L Hct 36.9 L MCV 88.1 MCH 29.1 MCHC 33.1 RDW Std Deviation 40.4 RDW Coeff of Vinod 12.6 Plt Count 177 MPV 9.8 Immature Gran % (Auto) 0.200 Neut % (Auto) 73.1 H Lymph % (Auto) 12.7 L [place] % (Auto) 10.9 H Eos % (Auto) 2.9 Baso % (Auto) 0.2 Absolute Neuts (auto) 4.3 Absolute Lymphs (auto) 0.75 L Nucleated RBC % 0 PT 14.1 INR 1.1 APTT 38.0 H Sodium 137 Potassium 4.0 Chloride 102 Carbon Dioxide 30.0 Anion Gap 5 BUN 21 H Creatinine 0.50 L Estim Creat Clear Calc 135.53 Est GFR (MDRD) Af Amer 217 Est GFR (MDRD) Non-Af 179 BUN/Creatinine Ratio 42.3 H Glucose 93 Lactic Acid 0.7 Calcium 9.5 Total Bilirubin 0.50 AST 12 L ALT 30 Alkaline Phosphatase 127 H Total Protein 7.2 Albumin 3.2 Globulin 4.0 Albumin/Globulin Ratio 0.8 L Urine Color Yellow Urine Clarity Cloudy Urine pH 7.0 Ur Specific Cylinder 1.010 Urine Protein Negative Urine Glucose (UA) Normal Urine Ketones Negative Urine Occult Blood Negative Urine Nitrite Negative Urine Bilirubin Negative Urine Urobilinogen Normal Ur Leukocyte Esterase Negative Urine RBC 0 SEEN Urine WBC 0-5 SEEN Ur Squamous Epith Cells 0-5 SEEN Amorphous Sediment 2+ Urine Bacteria 2+ Urine Mucus 0 SEEN Radiography Diagnostic Testing: Clinical Impression(s) from Imaging Studies Facial/Sinus 05/29/24 12:28 IMPRESSION: 1. Interval appearance of new intramedullary resorption and cortical erosion has occurred along the posterior lower aspect and left side of the mandible see image 35/81 series 3 most likely due to osteomyelitis, however given the history of malignancy this is also of concern. 2. The lobular fluid collection is anterior to this site but could still serve as the source for an abscess or serous fluid collection. Dental infection with abscess is a possibility, as well as malignancy and a desmoplastic/reactive fluid collection. The patient has a complex history and therefore will need to be directly evaluated by ENT/oral surgery. 3. 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 Electronically Signed: Peña Lemus MD at 14:26 EDT , Chest X-Ray 05/29/24 13:43 IMPRESSION: COPD Electronically Signed: Peña Lemus MD at 14:39 EDT , Discharge Plan Triage Chief Complaint: Abscess ED Provider: Nino June Dx/Rx/DC Orders Clinical Impression: Acute osteomyelitis of jaw Prescriptions: No Action Lyrica 100 mg capsule 100 mg PO TID albuterol sulfate [Ventolin HFA] 90 mcg/actuation HFA aerosol inhaler 2 puff INHALATION Q6H PRN (Reason: shortness of breath or wheezing) meclizine 25 mg tablet 25 mg PO TID PRN (Reason: Vertigo) Qty: 270 3RF nicotine 14 mg/24 hr patch 24 hour 1 patch transdermal Q24H Qty: 28 1RF lidocaine-prilocaine 2.5-2.5 % cream 1 applic topical ONCE PRN (Reason: port access) 30 Days Qty: 30 2RF ondansetron 8 mg tablet,disintegrating 8 mg PO Q8H PRN (Reason: nausea and vomiting) Qty: 30 2RF lansoprazole [Prevacid SoluTab] 30 mg tablet,disintegrat, delay rel 30 mg PO DAILY Qty: 30 1RF Senna Plus 8.6-50 mg capsule 1 tab-cap PO QHS Qty: 30 1RF MAGIC MOUTH WASH (BMX) 180 mL suspension 15 ml PO .Q6HR Qty: 180 5RF Rx Instructions: diphenhydramine 12.5 mg/5 mL oral liquid 60 mL; aluminum-mag hydroxide-simethicone 400 mg-400 mg-40 mg/5 mL oral susp 60 mL; Lidocaine Viscous 2 % mucosal solution 60 mL; Per 180 mL buprenorphine [Butrans] 10 mcg/hour patch weekly 1 patch topical QWEEK nystatin 100,000 unit/mL suspension 5 ml PO .qid Qty: 500 1RF Rx Instructions: swish and swallow buprenorphine 20 mcg/hour patch weekly 1 patch transdermal QWEEK hydrocodone-acetaminophen 7.5-325 mg tablet 1 tab PO Q8H PRN pentoxifylline 400 mg tablet extended release 400 mg PO TID Qty: 90 5RF Rx Instructions: must administer with a meal/food vitamin E mixed 1,000 unit capsule 1 unit PO DAILY Qty: 30 5RF Rx Instructions: 1000 mg po daily aspirin 81 MG tablet,delayed release (DR/EC) 81 mg PO DAILY Patient Comments: heart health amlodipine 10 mg tablet 10 mg PO DAILY Qty: 90 3RF Patient Comments: helps control BP lisinopril 40 mg tablet 40 mg PO QDAY Qty: 90 3RF atorvastatin 40 mg tablet 40 mg PO QDAY Qty: 90 3RF metoprolol tartrate 25 mg tablet 12.5 mg PO BID Qty: 90 3RF Primary Care Provider: Jennifer Ortega Referrals: Jennifer Ortega DO [Primary Care Provider] - Print Language: Lithuanian Disposition Disposition: DC/Tx to Another Type of HCF
[2024-05-29 12:36] LABS: Absolute Lymphocyte Count 0.75 X10^3/uL (0.83-4.51); Absolute Neutrophil Count 4.3 X10^3/uL (2.0-7.7); Basophil# 0.01 X10^3/uL; Basophil% 0.2 % (0-1); Eosinophil# 0.17 X10^3/uL; Eosinophils% 2.9 % (0-5); Hematocrit 36.9 % (40-54); Hemoglobin 12.2 g/dL (13.0-16.5); Lymphocyte # 0.75 X10^3/ul (0.83-4.51); Lymphocyte % 12.7 % (19-41); Mean Corp Hgb Conc 33.1 g/dL (32-36); Mean Corpuscular Hgb 29.1 pg (27.0-32.0); Mean Corpuscular Volume 88.1 fL (80-94); Mean Platelet Vol. 9.8 fl (6.2-12.0); Monocyte# 0.64 X10^3/uL; Monocyte% 10.9 % (0-10); NRBC Flagged by Analyzer 0 % (0-5); Neutrophil # 4.31 X10^3/uL (2.7-7.7); Neutrophil % 73.1 % (47-70); Platelet Count 177 K/mm3 (150-450); RBC Distribution Width CV 12.6 % (11.6-14.6); RBC Distribution Width SD 40.4 fl (35.1-43.9); Red Blood Count 4.19 M/mm3 (4.6-6.2); White Blood Count 5.9 K/mm3 (4.4-11.0)
[2024-05-29 12:45] LABS: International Normalized Ratio 1.1; Prothrombin Time (Protime)PT. 14.1 SECONDS (11.7-14.9)
[2024-05-29 12:59] LABS: Mucous, Urine 0 SEEN /hpf (<or=2+); Red Blood Cells-Urine 0 SEEN /hpf (0-5)
[2024-05-29 13:00] LABS: ALB/GLOB Ratio 0.8 RATIO (0.9-2.4); AST(SGOT) 12 U/L (15-37); Alanine Aminotransfer ALT/SGPT 30 U/L (16-61); Albumin, Serum 3.2 g/dL (3.2-5.0); Alkaline Phosphatase 127 U/L (45-117); Anion Gap 5 (5-15); BUN 21 mg/dL (7-18); BUN/Creat Ratio 42.3 RATIO (10-20); Calcium,Total 9.5 mg/dL (8.5-10.1); Chloride 102 mmol/L (98-107); EST Glomerular Filtration Rate 179 mL/min (>60); Est Glom Filt Rate - Afr Amer 217 mL/min (>60); Estimated Creatinine Clearance 135.53 ml/min; Glucose 93 mg/dL (74-106); Protein, Total 7.2 g/dL (6.4-8.2); Sodium Level 137 mmol/L (136-145)
[2024-05-29 13:02] LABS: Lactic Acid 0.7 mmol/L (0.4-1.9)
[2024-05-29 13:03] LABS: Color, Urine Yellow (Yellow); Glucose, Dipstick Normal (Normal); Ketone-Dipstick Negative (Negative); Leukocyte Esterase-Dipstick Negative /ul (Negative); Nitrite-Dipstick Negative (Negative); Occult Blood-Urine Negative /ul (Negative); Protein-Dipstick Negative (Negative); Urine Bilirubin Dipstick Negative (Negative); Urine Clarity Cloudy (Clear); Urine Urobilinogen Normal (Normal)
[2024-05-29 13:09] LABS: Amorphous Sediment 2+; Bacteria 2+ /hpf (None Seen); Squamous Epithelial Cells - UA 0-5 SEEN /hpf (0-5); White Blood Cells 0-5 SEEN /hpf (0-5)
--- NOTE | 2024-05-29 13:43 | RAD_ITS ---
STUDY: X-RAY CHEST REASON FOR EXAM: Male, 63 years old. cough BROUGHT TO ED FROM SPEECH, UNABLE TO COMPLETE A SWALLOW STUDY DO TO SWELLING ON LEFT SIDE OF FACE FROM ABSCESS. PT HAS THROAT CANCER, STATES HE''S NEVER HEALED FROM RADIATION AND CHEMO TECHNIQUE: PA and lateral views of the chest. COMPARISON: June 13, 2016 FINDINGS: No visualized consolidation or infiltrates. Right chest port and catheter noted. There is hyperinflation of the lungs consistent with chronic obstructive lung disease (COPD). Mild diffuse chronic interstitial lung disease. There is no demonstrated pleural abnormality. Normal size heart. Normal mediastinum and derrick. Normal visualized pulmonary arteries. There is atherosclerotic calcification of the aortic arch with tortuosity. There are diffuse degenerative changes of the visualized thoracic spine. Normal visualized ribs, clavicles, and shoulders. There is no demonstrated abnormality of the visualized soft tissue structures of the upper abdomen. RAD/Chest PA and Lateral IMPRESSION: COPD Electronically Signed: Peña Lemus MD at 14:39 EDT ,
[2024-05-29] MEDS: Piperacil/Tazobactam 3.375 GM in 0.9% Normal Saline (50mL MB+) 50 ML IV (15:07)
[2024-05-29] MEDS: Vancomycin IV 1,000 MG/200 ML BAG 200 MG IV (15:25)
[2024-05-29] MEDS: Ondansetron 4 MG/2 ML Vial IV (16:37)
[2024-05-29] MEDS: Morphine 4 MG/ML Syringe IV (16:37)
--- NOTE | 2024-05-29 18:37 | ED.RN ---
PORT ACCESSED TODAY DOWNSTAIRS IN THE [facility]. PT SENT TO ED PER PHYSICIAN AFTER ASSESSING THE FACIAL SWELLING ND PAIN PT WAS EXPERIENCING. PORT WAS FLUSHED WITH NS AND MEDS ADMINISTERED PER ORDER. [facility] AND [facility] LEFT ACCESSED WITH ALCOHOL CAPS AFTER FLUSHING.
== END 2024-05-29 18:45 | disposition other institution (70) ==
PROVIDERS: Emergency Provider Emergency Medicine; PCP Internal Medicine; Visit Provider Emergency Medicine
DX: M27.2 Inflammatory conditions of jaws (principal); I69.344 Monoplegia of lower limb following cerebral infarction affecting left non-dominant side; J44.9 Chronic obstructive pulmonary disease, unspecified; I25.10 Atherosclerotic heart disease of native coronary artery without angina pectoris; I10 Essential (primary) hypertension; E78.00 Pure hypercholesterolemia, unspecified; I25.2 Old myocardial infarction; Z79.82 Long term (current) use of aspirin; Z79.899 Other long term (current) drug therapy; Z87.891 Personal history of nicotine dependence; Z92.21 Personal history of antineoplastic chemotherapy; Z95.5 Presence of coronary angioplasty implant and graft
CPT/HCPCS: J7050; 70487; 71046; 80053; 81001; 83605; 85025; 85610; 85730; 87040; 87086; 93005; 96361; 96365; 96367; 96375; 99284; J7030; Q9967; A4216; J2405

== ENCOUNTER → 2024-05-29 | Outpatient (CLI) | payer MEDICAID, SELFPAY | END | disposition home or self-care (01) | PROVIDERS: PCP Internal Medicine; Referring Provider Student in an Organized Health Care Education/Training Program; Visit Provider Student in an Organized Health Care Education/Training Program | DX: C09.9 Malignant neoplasm of tonsil, unspecified (principal) ==

== ENCOUNTER 2024-06-10 15:49 | Outpatient (RCR) | payer MEDICAID, SELFPAY ==
--- NOTE | 2024-06-26 08:53 | NS ---
06/26/24: Called and spoke with significant other, Caroline. She doesn't have policy number for new insurance yet ([facility] [employer]). Encouraged her to call [facility] when she gets that information so that they can see if they accept that insurance. She confimred understanding. State the new health insurance goes into effect on 07/05/24. Reports Antonio is scheduled for skin graft surgery on his jaw on 07/16/24 at and is expected to be in the hospital for about 7 days after surgery. Caroline reports he has enough Jevity 1.5 at this time. Aleyda Bailey RDN, LD
== END 2024-07-04 23:59 ==
LOC: NS 15:49
PROVIDERS: PCP Internal Medicine; Visit Provider Internal Medicine Hematology & Oncology
DX: C09.9 Malignant neoplasm of tonsil, unspecified (principal); C77.9 Secondary and unspecified malignant neoplasm of lymph node, unspecified; Z71.3 Dietary counseling and surveillance
CPT/HCPCS: 97803

== ENCOUNTER 2024-07-16 14:40 | Outpatient (RCR) | payer MEDICAID, SELFPAY | END 2024-08-03 23:59 | LOC: NS 14:40 | PROVIDERS: PCP Internal Medicine; Visit Provider Internal Medicine Hematology & Oncology | DX: C09.9 Malignant neoplasm of tonsil, unspecified (principal); C77.9 Secondary and unspecified malignant neoplasm of lymph node, unspecified; Z71.3 Dietary counseling and surveillance; T85.848D Pain due to other internal prosthetic devices, implants and grafts, subsequent encounter ==

== ENCOUNTER 2024-08-19 11:14 | Outpatient (RCR) | payer MEDICARE, MEDICAID, SELFPAY | END 2024-09-03 23:59 | LOC: NS 11:14 | PROVIDERS: PCP Internal Medicine; Visit Provider Internal Medicine Hematology & Oncology | DX: C09.9 Malignant neoplasm of tonsil, unspecified (principal); Z71.3 Dietary counseling and surveillance; T85.848D Pain due to other internal prosthetic devices, implants and grafts, subsequent encounter | CPT/HCPCS: 97803 ==

== ENCOUNTER → 2024-11-27 | Outpatient (CLI) | payer MEDICARE, MEDICAID, SELFPAY ==
--- NOTE | 2024-11-28 15:22 | SP.FEES_ITS ---
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 PEG tube placed for treatment. He participated in OP ST during chemoradiation to manage dysphagia and trismus secondary to SCC of L tonsil. Limited follow up w/ ST since treatment due to pain and medical complications, such as jaw infection. The patient declined repeat MBSS after treatment due to fear of constipation, but was agreeable to FEES. FEES was attempted 05/28/2025, but not completed due to the jaw infection. Jaw infection resolved, and he returns now for FEES. 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 08/21/2023 ? 10/06/2023 completed definitive chemoradiation. He had infection of L jaw/face in May of 2024, was sent to the ED for CT, transferred to in [facility] for antibiotics and surgery. Surgery ended up not being necessary. Other PMH: CVA (May 2016) with L sided numbness (~3/4 numb per patient) and weakness. Hx of ST, OT, PT - but patient unable to give details. Denies swallowing difficulty besides drooling after the stroke. Additional relevant medical history includes, edentulous, PEG placement, HLD, NSTEMI, HTN, acid reflux, constipation, and mucositis. Subjective: Subjective:: Patient currently consumes regular textures / thin liquids, but admits to difficulty swallowing meats. He reports chronic cough, but states that some foods make it worse, such as meats. He also coughs/chokes if he eats too fast. Patient has not utilized PEG tube for the past 3 weeks and reports maintaining his weight. Patient reports jaw is difficult to open and painful to attempt opening wide. Current Diet: Drinks/Liquids:: Thin Foods:: Regular Respiratory Status Observation:: Room air Dentition/Oral Hygiene: Observations:: Edentulous. Patient has open space in area of L tonsil s/p radiation treatment. Tissue appears healed at this time. No signs of infection in oral cavity or along jaw line. Vocal Quality: Observations:: Hoarse Comments:: Intermittent dysphonia and aphonia Cognition: Observations:: WFL Position During FEES: Position During FEES:: Upright Location: In Chair Fiberoptic Endoscope: Size: 3.4 mm Nare Used:: Right Anatomical Findings: Anatomical Findings:: Cavity present where patient received radiation treatment to his L tonsil w/ yellowing scarring. Tissue of the laryngeal vestibule appeared reddish w/ prominent epiglottic petiole impacting view of the anterior commissure. At times, the true vocal folds appeared to fully adduct, while other times they did not fully adduct in the medial 1/3 of the folds. Patient appears to have L sided vocal fold paresis. Intermittent adduction of the ventricular folds w/ phonation. Decreased pharyngeal contraction evident w/ pitch glides. Secretions: Description:: Thin, Thick, Clear and White Comment:: Thin, clear secretions throughout oropharynx and hypopharynx. Thick, white secretions intermittently present in trachea w/ pt coughing it up into the laryngeal vestibule and oropharynx prior to swallowing and mostly clearing. Thick, white secretions intermittently in pyriform sinuses during the test, as well. Penetration-Aspiration Scale Penetration-Aspiration Scale Thin Liquids by Teaspoon Food/Drink Provided:: green colored water Swallow Onset Location:: Val[place]cula PAS Score: PAS Score *5 Visual Analysis of Swallowing Efficiency and Safety (VASES) after the swallow: Oropharynx, Hypopharynx and Vocal Folds VASES Comments:: <5% vallecula, <5% pyriform sinuses, <5% vocal folds Additional Comments:: reflexive cough Thin Liquids by Single Straw Food/Drink Provided:: green colored water Swallow Onset Location:: Val[place]cula PAS Score: PAS Score *5 Visual Analysis of Swallowing Efficiency and Safety (VASES) after the swallow: Oropharynx, Hypopharynx and Vocal Folds Comments:: <5% vallecula, <5% pyriform sinuses, <5% vocal folds Strategies Trialed:: effortful = not effective chin tuck = effective (BINITROTOLUENE OPERATOR believes PAS of 1, difficult to definitively say there was no laryngeal penetration due to green mildly thick residue remaining on vocal folds from previous trials; however, no new residues on vocal folds after swallow of thin by straw w/ chin tuck) Additional Comments:: reflexive cough Mildly Thick Liquids by Single Straw Food/Drink Provided:: green colored apple juice Swallow Onset Location:: Val[place]cula PAS Score: PAS Score *5 Visual Analysis of Swallowing Efficiency and Safety (VASES) after the swallow: Oropharynx, Hypopharynx and Vocal Folds Comments:: 10% vallecula, 10% in pyriform sinuses bilaterally, <5% vocal folds Strategies Trialed:: effortful = somewhat effective Additional Comments:: reflexive cough = not effective, trace residues remained on vocal folds after coughing Puree Textures Food/Drink Provided:: vanilla pudding Swallow Onset Location:: Aryepiglottic Folds PAS Score: PAS Score *2 Visual Analysis of Swallowing Efficiency and Safety (VASES) after the swallow: Oropharynx and Hypopharynx Comments:: >50% vallecula, 5% L pyriform sinus, 5% L aryepiglottic fold Strategies Trialed:: double swallow = somewhat effective Additional Comments:: Patient sensed residue in cavity in L tonsil; however, the cavity appeared clear of pudding residue. Regular Textures Food/Drink Provided:: Ritz cracker Swallow Onset Location:: Epiglottis PAS Score: PAS Score *2 Visual Analysis of Swallowing Efficiency and Safety (VASES) after the swallow: Oropharynx and Hypopharynx Comments:: >75% vallecula, 5% posterior pharyngeal wall, <5% L pyriform sinus Strategies Trialed:: larger/heavier bolus = not effective double swallow = somewhat effective liquid wash = most effective Additional Comments:: POOR SENSATION OF PHARYNGEAL RESIDUE. PATIENT HAD POOR SENSATION OF >75% PHARYNGEAL RESIDUES. Diagnosis/Impressions Diagnosis: Moderate-Severe Oropharyngeal Dysphagia R13.12 Impressions: Oral phase deficits... -Decreased mastication per patient report w/ meats and tough foods. Small piece of cracker appeared un-chewed. -Posterior loss of cracker to the epiglottis prior to swallow onset. Pharyngeal phase deficits... -[place] out during the swallow and moderate-severe pharyngeal residues indicating poor pharyngeal contraction most notable w/ solids. Of note, patient has poor sensation of pharyngeal residues and was requesting larger boluses, which worsened pharyngeal residue w/ continued poor sensation. Liquid wash and multiple swallows was most effective in reducing pharyngeal residue. -Decreased airway closure w/ laryngeal penetration of thin and mildly thick liquids to the vocal folds. Chin tuck was most effective in decreasing risk for aspiration. -Delayed swallow onset. Recommendations Diet: Soft and Bite Sized Textures and Thin Liquids Comments: Alternate bites/sips 1:1 ratio, Chin tuck every sip of liquids Compensatory Strategies: Small Bites, Small Sips, Slow Rate, Chin Tuck, Multiple Swallows, Alternate bites/solids and sips/liquids, Sitting upright and Remain sitting upright for 30 minutes after PO intake Recommend Repeat Instrumental Swallow Assessment: Yes Comments: Repeat MBSS or FEES in 3-6 months to monitor aspiration risk and risk for worsening dysphagia s/p chemoradiation treatment for SCC of L tonsil. Need for Skilled Speech Therapy Services: Yes Comments: Dysphagia POC initiated below. POC to include... -Training the patient in use of strategies to decrease risk for aspiration and choking -Ongoing assessment of diet tolerance of recommended textures. -Training the patient in oropharyngeal exercise program to improve bolus control, TB retraction, pharyngeal contraction, and airway closure (lingual resistance, Loyda, Samantha, effortful). Education Completed: 1. Described result of evaluation., 2. Pt understands evaluation & agrees with goals and treatment plan. and 7. Pt requires further education on strategies & risks. Frequency Frequency: Every Other Week Duration: 6-12 months Goals that are Established Goal #1: The patient will consume least restrictive diet textures without overt s/s of aspiration with minimal verbal cues for use of compensatory strategies to decrease risk for choking and aspiration. Goal #2: The patient will demonstrate/verbalize awareness of ability to test foods (fork pressure test, proper bite size) to determine if foods he orders or prepares are compliant w/ IDDSI level 6 standards to ensure the food is safe for consumption to decrease risk for choking. Goal #3: The patient will complete an oropharyngeal exercise program X10-15 reps, 3-5X daily s/p chemoradiation treatment for SCC of L tonsil with minimal verbal cues to improve strength, ROM, and coordination of swallowing mechanism. Goal #4: The patient will complete jaw strength, coordination, and ROM exercises X10 repetitions, 3-5X daily s/p chemoradiation treatment for SCC of L tonsil with minimal verbal cues to improve mastication and speech production abilities. Goal #5: The patient will participate in routine MBSS/FEES to objectively assess swallow function and provide recommendations for safest, least restrictive diet and compensatory strategies to reduce risk for choking and aspiration s/p chemoradiation treatment for SCC of L tonsil.
== END | disposition home or self-care (01) ==
PROVIDERS: PCP Internal Medicine; Referring Provider Student in an Organized Health Care Education/Training Program; Visit Provider Student in an Organized Health Care Education/Training Program
DX: C09.9 Malignant neoplasm of tonsil, unspecified (principal)
CPT/HCPCS: 92612

== ENCOUNTER 2024-12-18 15:53 | Outpatient (RCR) | payer MEDICARE, MEDICAID, SELFPAY | END 2025-01-01 23:59 | LOC: NS 15:53 | PROVIDERS: PCP Internal Medicine; Visit Provider Internal Medicine Hematology & Oncology | DX: C09.9 Malignant neoplasm of tonsil, unspecified (principal); T85.848D Pain due to other internal prosthetic devices, implants and grafts, subsequent encounter; Z71.3 Dietary counseling and surveillance ==

== ENCOUNTER → 2025-05-21 | Outpatient (CLI) | payer MEDICARE, MEDICAID, SELFPAY ==
[2025-05-21 20:58] LABS: Barbiturate Urine NEGATIVE (< 200 ng/mL); Benzodiazepine Urine NEGATIVE (< 200 ng/mL); PCP Urine NEGATIVE (< 25 ng/mL); THC Urine NEGATIVE (< 50 ng/mL)
== END | disposition home or self-care (01) ==
PROVIDERS: PCP Internal Medicine; Referring Provider Anesthesiology Pain Medicine; Visit Provider Anesthesiology Pain Medicine
DX: F11.20 Opioid dependence, uncomplicated (principal)
CPT/HCPCS: 80307

== ENCOUNTER 2025-06-18 11:31 | Outpatient (RCR) | payer MEDICARE, MEDICAID, SELFPAY ==
--- NOTE | 2025-06-18 13:10 | HP.SP.EVAL ---
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 PEG tube placed for treatment. He participated in OP ST during chemoradiation to manage dysphagia and trismus secondary to SCC of L tonsil. Limited follow up w/ ST since treatment due to pain and medical complications, such as jaw infection. The patient declined repeat MBSS after treatment due to fear of constipation, but was agreeable to FEES. FEES 11/28/2024 revealed moderate-severe oropharyngeal dysphagia and recommended soft and bite size textures / thin liquids w/ the following strategies: ?Alternate bites/sips 1:1 ratio, Chin tuck every sip of liquids?Small Bites, Small Sips, Slow Rate, Chin Tuck, Multiple Swallows, Alternate bites/solids and sips/liquids, Sitting upright and Remain sitting upright for 30 minutes after PO intake.? Pt was recommended for follow up dysphagia therapy, but did not schedule. He now returns for dysphagia evaluation and follow up treatment following education re: his risk for worsening dysphagia s/p chemoradiation treatment from MANAGER IN TRAINING. 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 08/21/2023 ? 10/06/2023 completed definitive chemoradiation. He had infection of L jaw/face in May of 2024, was sent to the ED for CT, transferred to in [facility] for antibiotics and surgery. Surgery ended up not being necessary. Other PMH: CVA (May 2016) with L sided numbness (~3/4 numb per patient) and weakness. Hx of ST, OT, PT - but patient unable to give details. Denies swallowing difficulty besides drooling after the stroke. Additional relevant medical history includes, edentulous, PEG placement, HLD, NSTEMI, HTN, acid reflux, constipation, and mucositis. Smoking Status: Former smoker Pain Is pain an issue with your current prescribed condition?: Yes Personal Preferred language: [place] Patient Allergies Allergies Allergies: Allergies Environmental Allergies: Uncoded Allergy (Unknown, Verified 06/27/24 11:45) Other Runny nose bee venom protein (honey bee) Allergy (Verified 06/27/24 11:45) anaphylaxis Subjective Dysphagia Symptoms Reported Symptoms/Problems with: Difficulty Swallowing Solids, Difficulty Swallowing Liquids and Food gets stuck Current Diet Solids Current Diet: Regular Current Diet Liquids Current Liquids: Thin NPO NPO - Alternative Nutrition Method: Gastrostomy Tube Comments Patient Report: -: PO INTAKE: Pt reports no swallowing difficulty w/ textures, such as chili. Hamburger and gravy over mashed potatoes felt as if it was sticking and going down the wrong way resulting in coughing. He reports feeling stiffness in his jaw and neck, as well. He also experiences increased swallowing difficulty w/ increased phlegm, which is clear, but stringy. Pt reports using foods to push down prior bites of food. MANAGER IN TRAINING cautioned risk for choking with this strategy. MANAGER IN TRAINING also educated the patient in high aspiration risk w/o use of safe swallowing strategies. MANAGER IN TRAINING reviewed recommendations from most recent instrumental assessment of swallowing (FEES 11/27/2024): ?Alternate bites/sips 1:1 ratio, Chin tuck every sip of liquids?Small Bites, Small Sips, Slow Rate, Chin Tuck, Multiple Swallows, Alternate bites/solids and sips/liquids, Sitting upright and Remain sitting upright for 30 minutes after PO intake.? Pt does state he often uses a chin tuck when swallowing. PEG INTAKE: Some days he uses PEG and some days he doesn't. 2 cartons via PEG to supplement po intake on some days. Objective Dysphagia Administered by Administered by: Self Thin Liquids Administred via: Cup and Straw Comments: MANAGER IN TRAINING encouraged use of chin tuck w/ liquids, which pt executed. Cough after 1 sip via cup w/ chin tuck when used as a liquid wash for cookie. Pureed Administered via: Spoon Comments: Pt consumed bites w/ timely swallow, good oral clearance, no overt s/s of aspiration, no sensation of retention. Soft & Bite sized (Mechanical) Comments: MANAGER IN TRA[employer]ING provided bite-size pieces of soft cookie, educating pt in need for small bites (approx. size of thumbnail) to reduce risk for choking. Pt completed bites w/o s/s of aspiration w/ MANAGER IN TRAINING recommending either liquid or puree (applesauce) wash after each bite due to hx of poor sensation of pharyngeal retention. Of note, pt also took a pill w/ water and chin tuck during the MBSS for pain and sensed pharyngeal retention. MANAGER IN TRAINING recommended using puree wash to clear, which he successfully did w/o s/s of aspiration. Swallowing Impairment Contributing Factors to Swallowing Impairment: Reduced Oral Strength/Coordination/Sensation, Mastication Inefficiency and Impaired Oral-Pharyngeal Transport Impact Impact on Safety & Functioning: Risk for Aspiration and Risk for Inadequate Nutrition/Hydration Comments: Risk for Choking Diet Texture Recommendations Solids: Soft & Bite sized (Level 6, Chopped) Liquids: Thin (Level 0) Other liquids: Supplement via PEG Other: Alternate bites/sips 1:1 ratio, Chin tuck every sip of liquids?Small Bites, Small Sips, Slow Rate, Chin Tuck, Multiple Swallows, Alternate bites/solids and sips/liquids, Sitting upright and Remain sitting upright for 30 minutes after PO intake Results Swallowing Within Normal Limits: Yes Swallowing Diagnosis: Oropharyngeal Phase Dysphagia (R13.12) Additional: Moderate-Severe Objective Oral Motor Oral Status Dentition: Missing Teeth Additional: edentulous Jaw Impairment: Severe Opening Measurement: 16mm from lip to lip Oral Motor Comments Comments: Cavity present in L oropharynx s/p chemoradiation treatment of cancer of L tonsil. Pt states liquids typically rinse foods out of this shelf fairly easily. Pt reports he ousmane find that pills every once in a while become caught in the shelf. Respiratory Status Respiratory Status: Room Air REPAIRER HELPER V Trigeminal Nerve V Trigeminal Nerve Response: Impaired Comment:: Decreased bulging of muscles of mastication bilaterally. VII Facial Nerve VII Facial Nerve Result: Intact X Vagus Nerve X Vagus Nerve Result: Impaired Comment:: Diminished gag, diminished sensation of L side of velum. XII Hypoglossal Nerve XII Hypoglossal Nerve Result: Impaired Comment:: Mild weakness of lingual musculature in all directions Swallowing Performance Scale Swallowing Performance Scale Swallowing Performance Scale Result: 6 Moderate to Severe Reference: Neuro-QoL instrument Radiation Oncology Patient FOIS Functional Oral Intake Scale Tube dependent with consistent oral intake of food or liquid: Level 3 Plan Plan Plan: Will recommend the patient for skilled outpatient dysphagia therapy to address moderate-severe oropharyngeal dysphagia and trismus secondary to cancer of L tonsil s/p chemoradiation treatment. The patient is at risk for worsening dysphagia following treatment. Speech therapy POC to include further education and training re: oropharyngeal exercise program, jaw exercise program, and neck ROM exercise program, as well as education in diet texture recommendations and compensatory strategies to decrease risk for aspiration. Additionally, will provide ongoing assessment of diet tolerance during POC. POC to also include an updated MBSS to monitor swallow function and aspiration risk. Without skilled ST services, the patient is at increased risk for worsening dysphagia, choking, aspiration, weight loss, dehydration, malnutrition, and chronic PEG tube dependency. Recommendations Treatment Warranted: Yes Treatment Warranted: Dysphagia Progress Prognosis: Fair Frequency Frequency: 1x/Week Duration: 2-4 Months Goals that are Established Determination:: Goals will be added/modified as deemed necessary and appropriate. Therapy will be discontinued when results of re-evaluation indicate therapy is no longer needed or lack of progress has been documented. Goal #1-5 Goal #1: The patient will consume least restrictive diet textures without overt s/s of aspiration with 90% acc with minimal verbal cues for use of strategies to facilitate safe po intake. Goal #2: The patient will complete an oropharyngeal exercise program independently to improve and maintain strength, ROM, and coordination of swallowing mechanism (X10 repetitions, 3-5X daily). Goal #3: The patient will complete neck ROM exercises independently to improve and maintain neck mobility for optimal swallow functioning (X10 repetitions, 3-5X daily). Goal #4: The patient will complete jaw strength, coordination, and ROM exercises during and post radiation treatment independently to improve mastication and speech production abilities (X10 repetitions, 3-5X daily). Goal #5: The patient will achieve jaw opening 35-55mm to promote improved mastication and speech production abilities. Education Patient has Indicated that the Following The Patient has indicated that they have no educational or learning abilities that may effect their care.: Yes Patient Instruction Patient Education: Diagnosis, Treatment Plan, Goals, Safety Precautions and Diet Level Other Education: MANAGER IN TRAINING thoroughly educated the patient in high choking and aspiration risk w/o use of compensatory strategies. He verbalized understanding. Person Taught: Patient Teaching Method: Discussion Response to teaching: Verbalize Understanding and Reinforcement Needed
--- NOTE | 2025-09-09 13:10 | HP.SP.DC ---
ST Discharge Summary Discharged: Discharge: FEES 11/28/2024 revealed moderate-severe oropharyngeal dysphagia and recommended soft and bite size textures / thin liquids w/ the following strategies: ?Alternate bites/sips 1:1 ratio, Chin tuck every sip of liquids?Small Bites, Small Sips, Slow Rate, Chin Tuck, Multiple Swallows, Alternate bites/solids and sips/liquids, Sitting upright and Remain sitting upright for 30 minutes after PO intake.? Pt was recommended for follow up dysphagia therapy, but did not schedule immediately. He did return for dysphagia evaluation 06/18/2025, which revealed continued moderate-severe dysphagia. POC recommended, ?further education and training re: oropharyngeal exercise program, jaw exercise program, and neck ROM exercise program, as well as education in diet texture recommendations and compensatory strategies to decrease risk for aspiration. Additionally, will provide ongoing assessment of diet tolerance during POC. POC to also include an updated MBSS to monitor swallow function and aspiration risk.? The patient did not return for additional ST sessions, so pt will be discharged from POC. Please re-consult if pt wishes to pursue dysphagia treatment for management of moderate-severe dysphagia given hx of HNC.
== END 2025-06-18 19:00 | disposition home or self-care (01) ==
LOC: SP 11:31
PROVIDERS: PCP Nurse Practitioner Family; Referring Provider Student in an Organized Health Care Education/Training Program; Visit Provider Student in an Organized Health Care Education/Training Program
DX: C09.9 Malignant neoplasm of tonsil, unspecified (principal)
CPT/HCPCS: 92610; 96523; A4216

== ENCOUNTER 2025-07-07 14:04 | Outpatient (RCR) | payer MEDICARE, MEDICAID, SELFPAY | END 2025-08-03 23:59 | LOC: NS 14:04 | PROVIDERS: PCP Nurse Practitioner Family; Visit Provider Nurse Practitioner Family | DX: C09.9 Malignant neoplasm of tonsil, unspecified (principal); T85.848D Pain due to other internal prosthetic devices, implants and grafts, subsequent encounter; Z71.3 Dietary counseling and surveillance ==